=== PATIENT | female | born 1965 | race American Indian/Alaskan Native ===

== ENCOUNTER 2017-01-12 11:14 | Emergency (ER) | payer SELFPAY ==
[2017-01-12 12:10] VITALS: BP 116/79
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
[2017-01-12] MEDS ORDERED: THERMAZENE 50 GRAM TP ONE (15:18)
[2017-01-12] MEDS ORDERED: BOOSTRIX IM ONE (15:21)
== END 2017-01-12 16:30 | disposition home or self-care (01) ==
LOC: ED 11:14
DX: T22.251A Burn of second degree of right shoulder, initial encounter (principal); T22.211A Burn of second degree of right forearm, initial encounter; X13.1XXA Other contact with steam and other hot vapors, initial encounter; Y93.89 Activity, other specified; Y99.8 Other external cause status; Y92.488 Other paved roadways as the place of occurrence of the external cause; K21.9 Gastro-esophageal reflux disease without esophagitis; F17.200 Nicotine dependence, unspecified, uncomplicated
CPT/HCPCS: 90471; 90715

== ENCOUNTER 2018-08-08 12:35 | Emergency (ER) | payer SELFPAY ==
[2018-08-08 12:45] VITALS: BP 115/81
[2018-08-08] MEDS ORDERED: TORADOL IM ONE (13:58)
--- NOTE | 2018-08-08 14:05 | Emergency Department Report ---
ED Extremity Problem HPI - General Chief complaint: Extremity Injury, Lower Stated complaint: LEG AND KNEE PAIN Time Seen by Provider: 08/08/18 13:55 Source: patient Mode of arrival: Ambulatory Limitations: No Limitations - History of Present Illness Initial comments: Patient is a 52-year-old [place] female who states she slipped while walking down the stairs earlier today has pain in her left hip and left knee. Patient states that she did not fall to the ground. She states there is just a twisting motion and when she moved abnormally when she was trying to catch herself from falling. Patient states she has a history of osteoarthritis and does have chronic pain. Patient states the pain in the left hip and left knee are 10 out 10 however she was able to ambulate steadily at triage. She denies any other injury at this time. - Related Data Previous Rx's Medication Instructions Recorded Last Taken Type Acetaminophen/Codeine [Tylenol #3] 1 tab PO Q8H PRN #15 tab 01/12/17 Unknown Rx SILVER sulfADIAZINE 50 GRAM 1 applicatio TP BID #1 tube 01/12/17 Unknown Rx [Thermazene 50 Gram] Sulfamethoxazole/Trimethoprim 1 each PO BID #20 tablet 01/12/17 Unknown Rx [Bactrim DS TAB] HYDROcodone/APAP 5-325 [[place] 1 each PO Q4HR PRN #12 tablet 08/08/18 Unknown Rx 5/325] Ibuprofen [Motrin] 800 mg PO Q8HR PRN #20 tablet 08/08/18 Unknown Rx methOCARBAMOL [Robaxin TAB] 500 mg PO Q6H PRN #15 tablet 08/08/18 Unknown Rx Allergies Allergy/AdvReac Type Severity Reaction Status Date / Time No Known Allergies Allergy Verified 01/12/17 12:05 ED Review of Systems ROS: Stated complaint: LEG AND KNEE PAIN Other details as noted in HPI Comment: All other systems reviewed and negative ED Past Medical Hx - Past Medical History Previous Medical History?: Yes Hx GERD: Yes - Surgical History Past Surgical History?: Yes Additional Surgical History: LEFT KNEE SURGERY. THROAT SURGERY. TUBAL LIGATION - Social History Smoking Status: Current Every Day Smoker Substance Use Type: None - Medications Home Medications: Home Medications Medication Instructions Recorded Confirmed Last Taken Type Acetaminophen/Codeine [Tylenol #3] 1 tab PO Q8H PRN #15 tab 01/12/17 Unknown Rx SILVER sulfADIAZINE 50 GRAM 1 applicatio TP BID #1 tube 01/12/17 Unknown Rx [Thermazene 50 Gram] Sulfamethoxazole/Trimethoprim 1 each PO BID #20 tablet 01/12/17 Unknown Rx [Bactrim DS TAB] HYDROcodone/APAP 5-325 [[place] 1 each PO Q4HR PRN #12 tablet 08/08/18 Unknown Rx 5/325] Ibuprofen [Motrin] 800 mg PO Q8HR PRN #20 tablet 08/08/18 Unknown Rx methOCARBAMOL [Robaxin TAB] 500 mg PO Q6H PRN #15 tablet 08/08/18 Unknown Rx ED Physical Exam - General Limitations: No Limitations General appearance: alert, in no apparent distress - Head Head exam: Present: atraumatic, normocephalic - Eye Eye exam: Present: normal appearance - ENT ENT exam: Present: mucous membranes moist - Neck Neck exam: Present: normal inspection - Respiratory Respiratory exam: Present: normal lung sounds bilaterally. Absent: respiratory distress - Cardiovascular Cardiovascular Exam: Present: regular rate, normal rhythm. Absent: systolic murmur, diastolic murmur, rubs, gallop - GI/Abdominal GI/Abdominal exam: Present: soft, normal bowel sounds - Extremities Exam Extremities exam: Present: normal inspection, other (and has tenderness to palpation to the left hip and left knee however when doing passive range of motion she has very little difficulty. Patient is able to bend the knee greater than 90. There is no obvious deformity. I am able to flex and abduct the left hip.) - Back Exam Back exam: Present: normal inspection - Neurological Exam Neurological exam: Present: alert, oriented X3 - Psychiatric Psychiatric exam: Present: normal affect, normal mood - Skin Skin exam: Present: warm, dry, intact, normal color. Absent: rash ED Course Vital Signs 08/08/18 12:42 Temperature 98.9 F Pulse Rate 89 Respiratory 18 Rate Blood Pressure 115/81 O2 Sat by Pulse 95 Oximetry ED Medical Decision Making - Medical Decision Making The patient is a 52-year-old female status post a slipping injury. Patient does pass the [facility] knee rules and does not warrant x-rays at this time. Patient be started on pain medicine will be given follow-up to orthopedics. Patient discharged home. Critical care attestation.: If time is entered above; I have spent that time in minutes in the direct care of this critically ill patient, excluding procedure time. ED Disposition Clinical Impression: Musculoskeletal leg pain Disposition: - TO HOME OR SELFCARE Is pt being admited?: No Does the pt Need Aspirin: No Condition: Stable Instructions: Hip Sprain (ED) Referrals: PRIMARY CARE, [Primary Care Provider] - 3-5 Days Time of Disposition: 14:05
== END 2018-08-08 14:20 | disposition home or self-care (01) ==
LOC: ED 12:35
DX: M25.562 Pain in left knee (principal); M25.552 Pain in left hip; K21.9 Gastro-esophageal reflux disease without esophagitis; Z98.51 Tubal ligation status; F17.200 Nicotine dependence, unspecified, uncomplicated
CPT/HCPCS: 96372; 99282; J1885